=== PATIENT | female | born 1945 | race Caucasian/White ===

== ENCOUNTER 2024-03-14 12:23 | Outpatient (REF) | payer MEDICARE, SELFPAY ==
--- NOTE | ~2024-03-14 | XR_ITS ---
EXAMINATION: XR KNEE, LEFT CLINICAL INFORMATION: Reason for Exam M25.562 - Pain in left knee COMPARISON: None TECHNIQUE: 2 views of the left knee. One view of the bilateral knees standing. FINDINGS: No acute fracture or dislocation. Advanced osteoarthritis with complete loss of medial compartment joint space and tricompartmental osteophytes. No joint effusion. Soft tissues are unremarkable. SINGLE VIEW OF THE CONTRALATERAL RIGHT KNEE: No acute fracture or dislocation. Joint spaces are maintained. Soft tissues are unremarkable. XR/XR knee LT 3V IMPRESSION: * No acute osseous abnormality. * Advanced degenerative changes of the left knee.
== END 2024-03-14 12:24 | disposition home or self-care (01) ==
LOC: HO.HOSX 12:23
PROVIDERS: Visit Provider Orthopaedic Surgery
DX: M17.12 Unilateral primary osteoarthritis, left knee (principal)
CPT/HCPCS: 20610; 73562; 99202; J0665; J1100

== ENCOUNTER 2024-03-14 13:49 | Outpatient (AMB) | payer OTHER, SELFPAY ==
--- NOTE | 2024-03-14 13:58 | A.OFFVIS_ITS ---
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 Patient reports that she has had ongoing pain for about 5-6 years now. She did physical therapy which was not helpful. She explains that she twisted f the knee which started the onset of pain. Pain increases with prolonged walking and standing. the pain will occasionally wake her up at night if she moves the wrong way. She takes Ibuprofen which only helps for a short time. 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 Patient reports that she has had ongoing pain for about 5-6 years now. She did physical therapy which was not helpful. She explains that she twisted f the knee which started the onset of pain. Pain increases with prolonged walking and standing. the pain will occasionally wake her up at night if she moves the wrong way. She takes Ibuprofen which only helps for a short time. Physical Exam Const General: cooperative, healthy appearing, no acute distress, well developed and alert HEENT Head: Yes normal to inspection, Yes normocephalic and Yes atraumatic Mouth: moist mucous membranes Eyes General: appearance normal, both eyes and all related structures EOM: EOMs intact bilaterally Chest Other: no audible wheezing. Resp Other: No audible wheezing Effort & Inspection: normal respiratory effort Back/Spine/Pelvis Cervical Spine: normal cervical lordosis Skin General skin exam: no rashes or lesions noted Neuro General: no focal motor deficits Extrem Other: Trace effusion left knee 5-130 degrees of motion Tenderness to palpation medial joint line Psych Appearance: grossly normal and well kempt Mental Status: mental status grossly normal Speech and movement: Normal speech and movement present Affect: normal affect Attitude: cooperative Office Procedures Joint Injection/Drain Joint Injection/Drain Details: Injected 1 mL of Decadron and 3 mL 1% lidocaine and 3 mL of 0.25% Marcaine. Site was prepped using aseptic technique. Patient tolerated the procedure well. Primary Site: left knee Approach Used: anterolateral Coding 36092 - Large joint Procedure code (CPT) selection complete Results Reviewed Results Reviewed: I personally reviewed relevant radiographs. Left knee tricompartmental osteoarthritis affecting the medial compartment severely Assessment & Plan Assessment & Plan (1) Localized osteoarthritis of left knee: Code(s): M17.12 - Unilateral primary osteoarthritis, left knee Category: Medical Plan: This is a 78-year-old woman with left knee osteoarthritis. Overall she has discomfort about 25% of the time. I do not think this is sufficient to warrant surgery. I discussed injection and therapy. At this time we elected to inject her left knee. She will return to see me in 3-4 months for continued discu ssion. Orders: Orders XR knee LT 3V Today M25.562 - Pain in left knee Coding Level of Care Code New Pt Level 3 (90694) Diagnoses Localized osteoarthritis of left knee M17.12 CPT Codes Coding - Large joint: 29158 - Large joint ([id number])
== END 2024-03-14 16:25 | disposition home or self-care (01) ==
PROVIDERS: PCP Family Medicine; Visit Provider Orthopaedic Surgery
DX: M17.12 Unilateral primary osteoarthritis, left knee (principal)
CPT/HCPCS: 20610; 99203